=== PATIENT | female | born 1965 | race Two or more races ===

== ENCOUNTER 2021-06-19 15:57 | Emergency (ER) | payer OTHER ==
[2021-06-19 16:08] VITALS: BP 135/82; PULSE 77; TEMP 98; BMI 26.6
[2021-06-19] MEDS ORDERED: KETOROLAC TROMETHAMINE 30 MG/1 ML VIAL IVPUSH ONE (16:46)
[2021-06-19] MEDS ORDERED: KETOROLAC TROMETHAMINE 30 MG/1 ML VIAL ONE (17:04)
[2021-06-19 17:38] LABS: BASO % 0.3 % (0-2.0); EOS % 2.4 % (0-4.5); HEMATOCRIT 41.5 % (32.4-45.2); HEMOGLOBIN 14.1 GM/dL (10.7-15.3); LYMPH % 24.7 % (8-40); MEAN CELL VOLUME 88.2 fl (80-96); MEAN PLT VOLUME 9.2 fl (7.5-11.1); MONO % 5.7 % (3.8-10.2); NEUT % 66.9 % (42.8-82.8); PLATELET COUNT 197 10^3/uL (134-434); RDW 13.1 % (11.6-15.6); WHITE BLOOD COUNT 6.3 K/mm3 (4.0-10.0)
[2021-06-19 17:53] LABS: CALCIUM 9.5 mg/dL (8.5-10.1)
[2021-06-19 17:54] LABS: ALBUMIN 3.8 g/dl (3.4-5.0); BLOOD UREA NITROGEN 14.5 mg/dL (7-18)
[2021-06-19 17:57] LABS: CREATININE 0.7 mg/dL (0.55-1.3)
[2021-06-19 17:59] LABS: BILIRUBIN,TOTAL 0.2 mg/dL (0.2-1); TOT PROT 7.8 g/dl (6.4-8.2)
[2021-06-19] MEDS ORDERED: CLINDAMYCIN 600MG PREMIX IVPB 600 MG/50 ML BAG IVPB ONE ×2 (20:33→20:39)
== END 2021-06-19 21:08 | disposition home or self-care (01) ==
LOC: JERFT 15:57 → JER 15:57 → JERFT 21:08
PROC: 3E03329 Introduction of Other Anti-infective into Peripheral Vein, Percutaneous Approach (ICD-10-PCS; principal; 2021-06-19)
PROC: 3E0333Z Introduction of Anti-inflammatory into Peripheral Vein, Percutaneous Approach (ICD-10-PCS; 2021-06-19)
DX: L03.211 Cellulitis of face (principal)
CPT/HCPCS: 36415; 70487-TC; 80053; 85025; 96374; 96375; 99285-25

== ENCOUNTER 2023-11-20 00:21 | Emergency (ER) | payer OTHER ==
[2023-11-20 00:44] VITALS: BP 151/95; RESP 18; TEMP 98.2; BMI 27.8
[2023-11-20 01:23] VITALS: PULSE 78
== END 2023-11-20 01:47 | disposition home or self-care (01) ==
LOC: JER 00:21
DX: R25.8 Other abnormal involuntary movements (principal); Z00.00 Encounter for general adult medical examination without abnormal findings
CPT/HCPCS: 99283-25